=== PATIENT | female | born 1955 | race Caucasian/White ===

== ENCOUNTER 2019-08-29 05:00 | Day surgery (SDC) | payer MEDICARE, BC ==
[2019-08-28 10:23] LABS: HEMATOCRIT 36.6 % (36.0-48.0); HEMOGLOBIN 11.6 g/dL (12-16); MCH 27.8 pg (26.0-34.0); MCHC 31.7 g/dL (31.0-37.0); MCV 87.8 fL (80.0-100.0); MEAN PLATELET VOLUME 10.3 fL (7.4-10.4); PLATELET COUNT 225 10x3/uL (130-400); RBC 4.17 10x6/uL (4.00-5.40); WBC 6.1 10x3/uL (4.8-10.8)
[2019-08-28 14:59] LABS: BASOPHILS 0.5 % (0-2); EOSINOPHILS 1.4 % (0-7); IMMATURE GRANULOCYTES 0.2 % (0-5); LYMPHOCYTES 19.8 % (15-50); MONOCYTES 8.7 % (2-11); NEUTROPHILS 69.4 % (40-80)
[2019-08-28 15:02] LABS: CALCIUM 8.8 mg/dL (8.5-10.1); CARBON DIOXIDE 25.7 mmol/L (21.0-32.0); CREATININE - SERUM 0.9 mg/dL (0.6-1.3)
[2019-08-28 15:05] LABS: ANION GAP 13.3 mmol/L (8-16)
[~2019-08-29] VITALS: Ht 167.6 cm; Wt 79.4 kg
[~2019-08-29 05:00] MED LIST: BAYER CHEWABLE81 MG PO; ESTRACE 0.5 MG0.5 MG PO; TOPROL XL25 MG PO; ZOCOR20 MG PO
[2019-08-29 06:17] VITALS: BP 120/69; Ht 167.6 cm; Wt 79.4 kg
--- NOTE | 2019-08-29 08:29 | NUR ---
PREP RIGHT WRIST, HAND, ARM, FINGERS TO TOURNIQUET, FIRST WITH HIBICLENS, TOWEL DRY OFF, THEN CHLORAPREP FINGERS TO TOURNIQUET.
== END 2019-08-29 10:35 | disposition home or self-care (01) ==
LOC: D.OPS 05:00 → D.PAN 07:30 → D.OPS 07:30
PROVIDERS: Anesthesiology; ATTEND Orthopaedic Surgery
DX: S52.501A Unspecified fracture of the lower end of right radius, initial encounter for closed fracture (principal); X58.XXXA Exposure to other specified factors, initial encounter